=== PATIENT | female | born 1940 | race Caucasian/White ===

== ENCOUNTER 2017-11-07 19:09 | Emergency (ER) | payer OTHER ==
[~2017-11-07] VITALS: Ht 154.9 cm; Wt 69.1 kg
[~2017-11-07 19:09] MED LIST: ALENDRONATE SOD70 MG PO; AUGMENTIN875 MG PO; BENICAR HCT 401 EAC1 PO; CALTRATE PLUS1 EACH PO; CEPHALEXIN500 MG PO; DICLOFENAC POTA50 MG PO; LASTACAFT3 ML BOTH EYES; MIRAPEX0.5 MG PO; NASONEX17 GM BOTH NARES; NEXIUM40 MG PO; PRISTIQ50 MG PO; ZANTAC300 MG PO
[2017-11-07 19:16] VITALS: BP 157/78
[2017-11-07] MEDS ORDERED: FLEXERIL10 MG PO (21:17)
== END 2017-11-07 21:40 | disposition home or self-care (01) ==
LOC: EME 19:09
DX: M54.32 Sciatica, left side (principal); J30.9 Allergic rhinitis, unspecified; Z88.6 Allergy status to analgesic agent; Z88.8 Allergy status to other drugs, medicaments and biological substances; Z91.018 Allergy to other foods
CPT/HCPCS: 99281; 99283; J1100

== ENCOUNTER 2017-11-12 18:32 | Emergency (ER) | payer OTHER ==
[~2017-11-12] VITALS: Ht 154.9 cm; Wt 70.0 kg
[~2017-11-12 18:32] MED LIST changes: +FLEXERIL10 MG PO
[2017-11-12 21:04] LABS: HEMOGLOBIN 11.7 G/DL (11.9-15.5); MCH 30.9 PG (29.0-34.0); MCHC 35.5 G/DL (30.0-36.0); MCV 87.1 FL (83-99); PLATELET COUNT 167 K/uL (156-360); RBC DIS.WIDTH-CV 12.2 % (11.8-14.6); RBC DIS.WIDTH-SD 38.9 % (39-53); RED BLOOD COUNT 3.79 M/uL (3.80-5.20)
[2017-11-12 21:14] LABS: CHLORIDE 102 mEq/L (99-109); POTASSIUM 4.3 mEq/L (3.7-5.4); SODIUM 137 mEq/L (136-147)
[2017-11-12 21:16] LABS: GLUCOSE 94 mg/dL (70-99); TOTAL PROTEIN 7.4 g/dL (6.4-8.3)
[2017-11-12 21:18] LABS: TOTAL BILIRUBIN 0.3 mg/dL (0.0-1.0)
[2017-11-12 21:20] LABS: ALKALINE PHOSPHATASE 59 IU/L (3-129); APPEARANCE CLEAR ((CLEAR)); BILIRUBIN NEGATIVE; BLOOD NEGATIVE; COLOR YELLOW ((YELLOW)); GFR ESTIMATE (CALCULATED) 57 mL/min/; GLUCOSE (STRIP) NEGATIVE; KETONES NEGATIVE; LEUKOCYTES MODERATE; NITRITE NEGATIVE; PROTEIN (STRIP) NEGATIVE; SPECIFIC GRAVITY 1.013 (1.000-1.030); UROBILINOGEN 0.2 MG/DL (0.2-1.0)
[2017-11-12 21:21] LABS: UREA NITROGEN (BUN) 27 mg/dL (9-23)
[2017-11-12 21:22] LABS: AST (GOT) 23 IU/L (2-34)
[2017-11-12 21:23] LABS: ALT (GPT) 26 IU/L (3-49)
[2017-11-12 21:29] LABS: BACTERIA NONE SEEN /HPF; EPITHELIAL CELLS RARE /HPF; MUCUS NONE SEEN /LPF; UCUL ADDED? YES
[2017-11-12] MEDS ORDERED: TRAMADOL HCL50 MG PO (23:07)
[2017-11-12] MEDS ORDERED: PREDNISONE10 M1 PO (23:08)
[2017-11-12] MEDS ORDERED: CIPRO500 MG PO (23:14)
[2017-11-12 23:43] VITALS: BP 166/89
== END 2017-11-12 23:44 | disposition home or self-care (01) ==
LOC: EXP 18:32 → EME 18:32 → EXP 23:44
PROVIDERS: Physician Assistant
DX: M54.32 Sciatica, left side (principal); N39.0 Urinary tract infection, site not specified; M48.061 Spinal stenosis, lumbar region without neurogenic claudication; Z88.6 Allergy status to analgesic agent; Z88.8 Allergy status to other drugs, medicaments and biological substances
CPT/HCPCS: 72131; 80053; 81003; 85027; 87086; 99281; 99284

== ENCOUNTER 2017-11-18 10:57 | Inpatient (IN) | payer OTHER ==
[~2017-11-18] VITALS: Ht 154.9 cm; Wt 62.0 kg
[~2017-11-18 10:57] MED LIST changes: +CIPRO500 MG PO; +PREDNISONE10 M1 PO; +TRAMADOL HCL50 MG PO
[2017-11-18 11:43] LABS: APPEARANCE CLEAR ((CLEAR)); BILIRUBIN NEGATIVE; BLOOD NEGATIVE; COLOR STRAW ((YELLOW)); GLUCOSE (STRIP) NEGATIVE; KETONES NEGATIVE; LEUKOCYTES NEGATIVE; NITRITE NEGATIVE; PROTEIN (STRIP) NEGATIVE; SPECIFIC GRAVITY 1.009 (1.000-1.030); UCUL ADDED? NO; UROBILINOGEN 0.2 MG/DL (0.2-1.0)
[2017-11-18 11:48] LABS: HEMATOCRIT 37.4 % (36.0-46.0); HEMOGLOBIN 12.8 G/DL (11.9-15.5); MCH 29.9 PG (29.0-34.0); MCHC 34.2 G/DL (30.0-36.0); MCV 87.4 FL (83-99); PLATELET COUNT 182 K/uL (156-360); RBC DIS.WIDTH-CV 12.5 % (11.8-14.6); RBC DIS.WIDTH-SD 40.1 % (39-53); RED BLOOD COUNT 4.28 M/uL (3.80-5.20); WHITE BLOOD COUNT 9.1 K/uL (4.1-10.2)
[2017-11-18 12:10] LABS: ALBUMIN 4.2 g/dL (3.2-4.8); CHLORIDE 104 mEq/L (99-109); POTASSIUM 4.1 mEq/L (3.7-5.4)
[2017-11-18 12:11] LABS: SODIUM 137 mEq/L (136-147)
[2017-11-18 12:13] LABS: GLUCOSE 132 mg/dL (70-99); TOTAL PROTEIN 7.6 g/dL (6.4-8.3)
[2017-11-18 12:16] LABS: ALKALINE PHOSPHATASE 56 IU/L (3-129); GFR ESTIMATE (CALCULATED) 57 mL/min/
[2017-11-18 12:18] LABS: AST (GOT) 21 IU/L (2-34); UREA NITROGEN (BUN) 31 mg/dL (9-23)
[2017-11-18 12:19] LABS: ALT (GPT) 31 IU/L (3-49)
[2017-11-18 12:20] LABS: TOTAL BILIRUBIN 0.4 mg/dL (0.0-1.0)
[2017-11-18] MEDS ORDERED: TYLENOL ARTHRI650 MG PO (16:17)
[2017-11-18] MEDS ORDERED: OMEGA-31000 M1 PO (16:19)
[2017-11-18] MEDS ORDERED: BENICAR HCT 401 EAC1 PO (16:20)
[2017-11-18] MEDS ORDERED: NEXIUM40 MG PO (16:24)
[2017-11-18] MEDS ORDERED: SINGULAIR10 MG PO (16:30)
[2017-11-18 19:15] VITALS: BP 140/65
[2017-11-18 23:54] VITALS: BP 107/52
[2017-11-19 04:04] VITALS: BP 106/54
[2017-11-19 05:35] LABS: BASOPHIL (%) 0.1 % (0-1); EOSINOPHIL (%) 0 % (0-5); HEMATOCRIT 34.9 % (36.0-46.0); HEMOGLOBIN 11.4 G/DL (11.9-15.5); IMMATURE GRANULOCYTE (%) 0.7 % (0.0-0.7); LYMPHOCYTE (%) 11.4 % (15-42); MCH 28.9 PG (29.0-34.0); MCHC 32.7 G/DL (30.0-36.0); MCV 88.4 FL (83-99); MONOCYTE (%) 0.7 % (3-12); MONOCYTE COUNT 0.1 K/uL (0-0.8); NEUTROPHIL (%) 87.1 % (45-76); NEUTROPHIL COUNT 7.2 K/uL (1.8-6.4); PLATELET COUNT 159 K/uL (156-360); RBC DIS.WIDTH-CV 12.3 % (11.8-14.6); RED BLOOD COUNT 3.95 M/uL (3.80-5.20); WHITE BLOOD COUNT 8.3 K/uL (4.1-10.2)
[2017-11-19 06:12] LABS: CHLORIDE 105 MEQ/L (99-109); CREATININE 0.9 MG/DL (0.6-1.3); GFR ESTIMATE (CALCULATED) > 59 mL/min/; GLUCOSE 197 mg/dL (70-99); POTASSIUM 4.8 MEQ/L (3.7-5.4); SODIUM 137 MEQ/L (136-147); UREA NITROGEN (BUN) 29 mg/dL (9-23)
[2017-11-19 07:52] VITALS: BP 139/65
[2017-11-19 10:48] LABS: HEMOGLOBIN A1c (GLYCOHEMOGLOB) 6.4 % (Below 5.7)
[2017-11-19 11:13] VITALS: BP 136/63
[2017-11-19] MEDS ORDERED: HYDROCODON-ACE1 EAC7 PO (17:23)
[2017-11-19] MEDS ORDERED: MEDROL DOSEPAK4 MG PO (17:24)
[2017-11-19 18:38] VITALS: BP 153/69
[2017-11-19 20:30] VITALS: BP 145/66
[2017-11-19 23:38] VITALS: BP 105/53
[2017-11-20 04:23] VITALS: BP 129/58
[2017-11-20 08:21] VITALS: BP 131/67
[2017-11-20] MEDS ORDERED: CYCLOBENZAPRINE10 MG PO (09:05)
[2017-11-20 11:42] VITALS: BP 140/66
[2017-11-20 12:00] VITALS: BP 140/62
[2017-11-20 15:57] VITALS: BP 127/60
[2017-11-21 00:03] VITALS: BP 110/53
[2017-11-21 08:00] VITALS: BP 121/71; BP 148/66
[2017-11-21 08:45] VITALS: BP 148/56
== END 2017-11-21 10:45 | disposition home or self-care (01) | DRG 982 ==
LOC: EME 10:57 → EDOF 15:51 → 3EAST 15:51 → ENRESERV 16:45 → 3EAST 18:07
PROVIDERS: Emergency Medicine; Internal Medicine; Neurological Surgery
DX: R15.9 Full incontinence of feces (principal); M51.16 Intervertebral disc disorders with radiculopathy, lumbar region; M48.061 Spinal stenosis, lumbar region without neurogenic claudication; G83.4 Cauda equina syndrome; I10 Essential (primary) hypertension; K21.9 Gastro-esophageal reflux disease without esophagitis; F32.9 Major depressive disorder, single episode, unspecified; M41.9 Scoliosis, unspecified; M47.26 Other spondylosis with radiculopathy, lumbar region; Z87.891 Personal history of nicotine dependence; R35.0 Frequency of micturition; R19.7 Diarrhea, unspecified; R39.11 Hesitancy of micturition; R32 Unspecified urinary incontinence
CPT/HCPCS: 72020; 72148; 76000; 80048; 80053; 81003; 82948; 83036; 85025; 85027; 93005; 99281; 99285; J0131; J0690; J1100; J2060; J2250; J2405; J2710; J3010; J3480; J7030; J7643